=== PATIENT | female | born 1950 | race Caucasian/White ===

== ENCOUNTER 2016-11-26 22:46 | Emergency (ER) | payer OTHER, BC ==
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
== END 2016-11-27 03:45 | disposition home or self-care (01) ==
LOC: CFTX 22:46 → CED 22:46 → CFTX 23:59
DX: S20.212A Contusion of left front wall of thorax, initial encounter (principal); S60.222A Contusion of left hand, initial encounter; V43.52XA Car driver injured in collision with other type car in traffic accident, initial encounter; Y92.410 Unspecified street and highway as the place of occurrence of the external cause
CPT/HCPCS: 71010; 71120; 73130; 99284; J2930